=== PATIENT | female | born 1930 | race Caucasian/White ===

== ENCOUNTER 2018-01-24 20:27 | Emergency (ER) | payer MEDICARE, OTHER ==
[~2018-01-24 20:27] MED LIST: ALBU1AER INH; BECL80AE3 INH; DIAZ10 PO; LEVO100T4 PO
[2018-01-24] MEDS ORDERED: SODIUM CHLORIDE 0.9% FLUSH 10 ML FLUSH IVF PRN (21:30)
[2018-01-24 21:46] LABS: AUTOMATED NEUTROPHIL # 4.3 TH/MM3 (1.8-7.7); BASOPHIL # 0.1 TH/MM3 (0-0.2); BASOPHIL % 0.8 % (0.0-2.0); EOSINOPHIL # 0.6 TH/MM3 (0-0.4); EOSINOPHIL % 7.8 % (0.0-4.0); HEMATOCRIT 38.3 % (35.0-46.0); LYMPH % 31.7 % (9.0-44.0); LYMPHOCYTE # 2.6 TH/MM3 (1.0-4.8); MEAN CELL VOLUME 90.5 FL (80.0-100.0); MEAN CORPUSCULAR HEMOGLOBIN 30.6 PG (27.0-34.0); MEAN CORPUSCULAR HGB CONC 33.9 % (32.0-36.0); MONO % 6.6 % (0.0-8.0); MONOCYTE # 0.5 TH/MM3 (0-0.9); NEUT % 53.1 % (16.0-70.0); PLATELET COUNT 185 TH/MM3 (150-450); RED BLOOD COUNT 4.24 MIL/MM3 (4.00-5.30); RED CELL DISTRIBUTION WIDTH 12.8 % (11.6-17.2); WHITE BLOOD COUNT 8.1 TH/MM3 (4.0-11.0)
[2018-01-24 21:51] LABS: CHLORIDE 105 MEQ/L (98-107); SODIUM (NA) 139 MEQ/L (136-145)
--- NOTE | 2018-01-24 21:53 | PD ---
HPI . Dyspnea Chief Complaint: Respiratory Symptoms Time Seen by Provider: 21:14 Travel History International Travel<30 days: No Contact w/Intl Traveler<30days: No Traveled to known affect area: No History of Present Illness HPI This patient presents with a chief complaint of dyspnea. Onset was a few days ago. She has tried her home nebulizer machine without relief. She has subsequently learned that her medication is "long ." She states that she has used her MDI with some relief of her symptoms. She has not had a productive cough or fever. Symptoms are mild and there are no modifying factors. She has a couple of females here with her. They were both attempting to give the patient's history at the same time without allowing the patient to talk. They report increasing fatigue in the recent past. They also report "swelling. " PFSH Past Medical History Narrative Medical The patient reports that her only significant medical problem is COPD. Heart Rhythm Problems: No Cardiovascular Problems: No High Cholesterol: No Congestive Heart Failure: No Heparin Induced Thrombocytopen: No Hypertension: No Myocardial Infarction: No Tetanus Vaccination: > 5 Years Influenza Vaccination: No ?: Not Social History Alcohol Use: Yes (2 drinks per day ) Tobacco Use: No Substance Use: No Allergies-Medications (Allergen,Severity, Reaction): Coded Allergies: No Known Allergies (Verified , 11/30/09) Reported Meds & Prescriptions Reported Meds & Active Scripts Active Reported Proair Hfa (Albuterol Sulfate) 8.5 Gm Aero 2 Puff INH Q8HPRN * SHAKE WELL BEFORE USE * Qvar (Beclomethasone Dipropionate) 80 Mcg Aer 2 Spr INH BID Valium (Diazepam) 10 Mg Tab 10 Mg PO EVERY 8 HRS PRN Levothyroxine Sodium (Generic) (Levothyroxine Sodium) 100 Mcg Tab 100 Mcg PO DAILY Review of Systems Except as stated in HPI: all other systems reviewed are Neg General / Constitutional: No: Fever, Chills Cardiovascular: No: Chest Pain or Discomfort Respiratory: Positive: Shortness of Breath, No: Cough Physical Exam Narrative GENERAL: This is an 87-year-old female who looks quite well. She is able to give her own history. SKIN: warm/dry. Normal color and turgor. HEAD: Normocephalic. Atraumatic. EYES: Pupils equal and round. No scleral icterus. No injection or drainage. ENT: No nasal bleeding or discharge. Mucous membranes pink and moist. NECK: Trachea midline. Full range of motion without pain.. CARDIOVASCULAR: Regular rate and rhythm. RESPIRATORY: No accessory muscle use. Clear to auscultation. Breath sounds equal bilaterally. MUSCULOSKELETAL: No obvious deformities. She has no pitting edema. NEUROLOGICAL: Awake and alert. No obvious cranial nerve deficits. Motor grossly within normal limits. Normal speech. PSYCHIATRIC: Appropriate mood and affect; insight and judgment normal. Data Data Last Documented VS Vital Signs Date Time Temp Pulse Resp B/P (MAP) Pulse Ox O2 Delivery O2 Flow Rate FiO2 01/24/18 21:22 18 98 Room Air Orders Orders Complete Blood Count With Diff (01/24/18 21:18) Basic Metabolic Panel (Bmp) (01/24/18 21:18) B-Type Natriuretic Peptide (01/24/18 21:18) Troponin I (01/24/18 21:18) Iv Access Insert/Monitor (01/24/18 21:18) Electrocardiogram (01/24/18 21:18) Ecg Monitoring (01/24/18 21:18) Oximetry (01/24/18 21:18) Chest, Pa & Lat (01/24/18 21:18) Sodium Chloride 0.9% Flush (Ns Flush) (01/24/18 21:30) Labs Laboratory Tests Test 01/24/18 21:39 White Blood Count 8.1 TH/MM3 Red Blood Count 4.24 MIL/MM3 Hemoglobin 13.0 GM/DL Hematocrit 38.3 % Mean Corpuscular Volume 90.5 FL Mean Corpuscular Hemoglobin 30.6 PG Mean Corpuscular Hemoglobin Concent 33.9 % Red Cell Distribution Width 12.8 % Platelet Count 185 TH/MM3 Mean Platelet Volume 8.0 FL Neutrophils (%) (Auto) 53.1 % Lymphocytes (%) (Auto) 31.7 % Monocytes (%) (Auto) 6.6 % Eosinophils (%) (Auto) 7.8 % Basophils (%) (Auto) 0.8 % Neutrophils # (Auto) 4.3 TH/MM3 Lymphocytes # (Auto) 2.6 TH/MM3 Monocytes # (Auto) 0.5 TH/MM3 Eosinophils # (Auto) 0.6 TH/MM3 Basophils # (Auto) 0.1 TH/MM3 CBC Comment DIFF FINAL Differential Comment Blood Urea Nitrogen 23 MG/DL Creatinine 1.10 MG/DL Random Glucose 101 MG/DL Calcium Level 8.6 MG/DL Sodium Level 139 MEQ/L Potassium Level 3.6 MEQ/L Chloride Level 105 MEQ/L Carbon Dioxide Level 26.8 MEQ/L Anion Gap 7 MEQ/L Estimat Glomerular Filtration Rate 47 ML/MIN Troponin I LESS THAN 0.02 NG/ML B-Type Natriuretic Peptide 90 PG/ML MDM Medical Decision Making Medical Screen Exam Complete: Yes Emergency Medical Condition: Yes Interpretation(s) EKG shows a sinus rhythm with no acute ischemic changes. Differential Diagnosis Differential diagnosis of dyspnea includes but is not limited to congestive heart failure, pneumonia, wheezing, pneumothorax, pulmonary embolism Narrative Course This patient presents with a chief complaint of dyspnea. Respiratory rate is 18 with an oxygen saturation on room air of 98%. Her lungs are clear. Last Impressions Chest X-Ray 01/24/182117 Signed Impressions: Service Date/Time: January 21:57 - CONCLUSION: 1. No active disease. Tortuous aorta. Jose L Spear MD CBC & BMP Diagram 01/24/18 21:39 Calcium Level 8.6 BNP 90 No etiology for dyspnea has been found. Laboratory evaluation is unremarkable. Her lung exam is unremarkable. I will refill her nebulizer solution and discharge her to home. Diagnosis Primary Impression: Dyspnea Qualified Codes: R06.00 - Dyspnea, unspecified Patient Instructions: General Instructions, Shortness of Breath (DC) Med/Other Pt SpecificInfo: Prescription(s) given Scripts Ipratropium-Albuterol Neb (Duoneb) 0.5-2.5 Mg/3 Ml Neb 1 NEBULE INH Q4HR NEB for SHORTNESS OF BREATH, #120 NEBULE 0 Refills Prov: Janice Walton MD 01/24/18 Disposition: 01 DISCHARGE HOME Condition: Stable Janice Walton MD Jan 24, 2018 21:53
[2018-01-24 21:54] LABS: BICARBONATE 26.8 MEQ/L (21.0-32.0); CALCIUM 8.6 MG/DL (8.5-10.1); GLUCOSE,RANDOM 101 MG/DL (74-106)
[2018-01-24 21:55] LABS: BLOOD UREA NITROGEN 23 MG/DL (7-18)
[2018-01-24 21:58] LABS: GLOMERULAR FILTRATION RATE 47 ML/MIN (>89)
[2018-01-24 22:02] LABS: TROPONIN I LESS THAN 0.02 NG/ML (0.02-0.05)
--- NOTE | 2018-01-24 22:26 | RADRPT ---
EXAM DATE/TIME: 01/24/2018 21:57 [facility] COMPARISON: No previous studies available for comparison. INDICATIONS : Short of breath. MEDICAL HISTORY : Chronic obstructive pulmonary disease. Asthma SURGICAL HISTORY : ENCOUNTER: Initial ACUITY: 1 day PAIN SCORE: 0/10 LOCATION: Bilateral chest FINDINGS: PA and lateral views of the chest demonstrate the lungs to be symmetrically aerated without evidence of mass, infiltrate or effusion. The cardiomediastinal contours are unremarkable except tortuous aor ta. Osseous structures are intact. CONCLUSION: 1. No active disease. Tortuous aorta. Jose L Spear MD on January 24, 2018 at 22:22 Board Certified Radiologist. This report was verified electronically.
[2018-01-24 22:30] VITALS: RESP 16; O2SAT 98
[2018-01-24] MEDS ORDERED: IPRASOL INH (22:40)
--- NOTE | 2018-01-25 05:31 | EKG ---
Date Performed: 01/24/2018 Time Performed: 21:24:40 PTAGE: 87 years EKG: SINUS BRADYCARDIA LOW QRS VOLTAGE IN PRECORDIAL LEADS SEPTAL MYOCARDIAL INFARCTION ABNORMAL ECG PREVIOUS TRACING : 12/01/2009 01.44 Compared to previous tracing, possible septal infarction pa ttern is now present. DOCTOR: Tien Salazar Interpretating Date/Time 01/25/2018 05:30:23
== END 2018-01-24 23:14 | disposition home or self-care (01) ==
LOC: PHED 20:27
DX: R06.00 Dyspnea, unspecified (principal); R94.31 Abnormal electrocardiogram [ECG] [EKG]; J44.9 Chronic obstructive pulmonary disease, unspecified
CPT/HCPCS: 71046; 80048; 83880; 84484; 85025; 93005; 99285